=== PATIENT | female | born 1940 | race African-American/Black ===

== ENCOUNTER 2022-01-10 22:21 | Emergency (ER) | payer OTHER ==
[~2022-01-10] VITALS: Ht 154.9 cm; Wt 111.1 kg
[2022-01-10] MEDS ORDERED: HYDROCHLOROTHIA25 MG (22:29)
[2022-01-10] MEDS ORDERED: AMLODIPINE-OLM1 EAC3 (22:29)
[2022-01-10] MEDS ORDERED: MEMANTINE HCL5 MG (22:29)
[2022-01-10] MEDS ORDERED: LOSARTAN POTASS25 MG (22:31)
[2022-01-11] MEDS ORDERED: NAPROXEN375 MG PO (03:11)
[2022-01-11] MEDS ORDERED: NORFLEX100MG PO (03:11)
== END 2022-01-11 03:56 | disposition home or self-care (01) ==
LOC: ER 22:21
DX: S00.93XA Contusion of unspecified part of head, initial encounter (principal); W06.XXXA Fall from bed, initial encounter; Y93.89 Activity, other specified; Y92.013 Bedroom of single-family (private) house as the place of occurrence of the external cause; M62.838 Other muscle spasm; I10 Essential (primary) hypertension